=== PATIENT | male | born 1990 | race Caucasian/White ===

== ENCOUNTER 2016-08-27 03:20 | Emergency (ER) | payer OTHER ==
[2016-08-27 03:31] VITALS: BP 144/95
[2016-08-27] MEDS ORDERED: IBUPROFEN 400 MG TABLET PO ONE (03:54)
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
== END 2016-08-27 04:14 ==
LOC: ER 03:20
DX: S00.33XA Contusion of nose, initial encounter (principal); M13.812 Other specified arthritis, left shoulder; M13.811 Other specified arthritis, right shoulder; F17.210 Nicotine dependence, cigarettes, uncomplicated; Y09 Assault by unspecified means

== ENCOUNTER 2016-11-17 16:34 | Emergency (ER) | payer OTHER ==
[2016-11-17 17:02] VITALS: BP 125/89
--- NOTE | 2016-11-17 17:22 | ERNOTE ---
Dyspnea - Date Date of Service: 11/17/16 - General Presenting Symptoms: other - Sick Source: patient Exam Limitations: other - vague historian - Immun/Allergies/Home Medications Immunizations: IMMUNIZATION HX Immunizations Up to Date No History of Influenza Vaccine No Hx Pneumococcal Vaccination No Allergies/Adverse Reactions: Allergies cephalexin monohydrate [From Keflex] Allergy (Verified 11/17/16 17:02) Hives tramadol Allergy (Verified 11/17/16 17:02) fentanyl Adverse Reaction (Verified 11/17/16 17:02) Home Medications: HOME MEDICATIONS Acetaminophen [Tylenol] 1,000 mg PO PRN PRN 08/27/16 [Last Taken Unknown] Ibuprofen [Motrin] 800 mg PO TID PRN #30 tab 08/27/16 [Last Taken Unknown] Cefuroxime Axetil [Ceftin] 500 mg PO BID #20 tab 11/17/16 [Last Taken Unknown] - History of Present Illness Narrative: Became ill 2-3 days ago, isn't sure when. Lives with three other guys, none of whom have been ill. No thermometer, so doesn't know if he's had a fever. Cough productive of yellow phlegm, feels like his is drowning, sore throat, head ache, first day vomited because coughing so hard. Severity: moderate Treatment HEALTH PROFESSIONAL: other - tylenol Initiating event: Reports: unknown Frequency of episodes: Reports: no prior episodes Modifying Factors - (Improves): Reports: nothing Modifying Factors (Worsens): Reports: activity Associated Symptoms-Dyspnea: Reports: sweating, chest pain/discomfort, palpitations, cough, wheezing, dizziness, lightheadedness, weakness, loss of appetite Prior Treatment: Denies: recently seen, treated by physician, currently on antibiotics, previous episodes Review of Systems - Review of Systems Constitutional: Present: chills, diaphoresis, weakness, fatigue, malaise, decreased activity level EYE: Present: no symptoms reported ENT: Present: nose congestion, nasal drainage, sore throat Respiratory: Present: shortness of breath, cough Cardiology: Present: chest pain Gastrointestinal/Abdominal: Present: vomiting. Absent: diarrhea, eating less, drinking less Genitourinary: Present: no symptoms reported Musculoskeletal: Present: muscle pain, joint pain Skin: Present: no symptoms reported Neurological: Present: headache Endocrine: Present: no symptoms reported Hematologic/Lymphatic: Present: no symptoms reported Psych: Present: no symptoms reported All Other Systems: All systems neg except as marked - Patient's Past Medical History Patient History - Medical: No pertinent hx, Chronic Pain Patient History - Cardiac/Respiratory: No pertinent hx Patient History - Cancer: No Hx of Cancer Patient History - Surgical Procedures: No surgical history Patient History - Other: None - Social History Living Situations: other Abuse History: No History of abuse Psych History: No pertinent hx Smoking Status: Current every day smoker Alcohol Use: heavy Drug Use: none - Immunizations Immunizations Up to Date: No Hx Pneumococcal Vaccination: No History of Influenza Vaccine: No Physical Exam - Physical Exam General Appearance: Present: wd/wn, no apparent distress, lethargic, thin Eye Exam: Normal inspection: bilateral, PERRL: bilateral, EOMI: bilateral Ears, Nose, Throat: Present: normal ENT inspection, nasal congestion, pharyngeal erythema Neck: Present: normal inspection, nontender, supple. Absent: lymphadenopathy (R ), lymphadenopathy (L) Respiratory: Present: no respiratory distress, no accessory muscle use, lungs clear Cardiovascular/Chest: Present: regular rate, rhythm, no murmur Gastrointestinal/Abdominal: Present: normal bowel sounds, nondistended, soft, no organomegaly, tenderness - diffusely mildly tender Back Exam: Present: normal inspection Extremity Exam: Present: normal inspection, no edema Neurological Exam: Present: oriented Skin Exam: Present: normal color, warm/dry ED Progress - Results and Orders Patient's Lab Results:: I have reviewed the patient's lab results. - Vital Signs Patient's Vital Signs:: I have reviewed the patient's vital signs. Vital Signs: Vital Signs 11/17/16 16:54 Temperature 37.1 C Pulse Rate 96 Respiratory 18 Rate Blood Pressure 125/89 O2 Sat by Pulse 98 Oximetry - EKG EKG: NSR EKG read: Interp. by me - LAE, incomplete RBB, non specific ST elevation. - X-Ray X-Ray #1 X-Ray: chest Interpretation: Interp. by me - non acute - Progress/Reassessment Chief Complaint: Dyspnea Departure Clinical Impression: Bronchitis, Positive urine drug screen - Departure Disposition: Home self-care Condition: Fair Instructions: Acute Bronchitis, Stimulant Use Disorder-Amphetamines, Cannabis Use Disorder Additional Instructions: Follow up with health care provider of your choice this week. Prescriptions: Cefuroxime Axetil [Ceftin] 500 mg PO BID #20 tab
[2016-11-17 17:34] LABS: Hematocrit 46.4 % (42.0-52.0); Hemoglobin 15.8 gm/dL (13.5-18.0); Mean Cell Volume 91.3 fl (78-100); Mean Corpuscular Hemoglobin 31.1 pg (27-31); Mean Corpuscular Hgb Conc 34.1 g/dl (32-36); Mean Platelet Volume 9.3 fl (6.0-9.5); Neutrophil # 4.1 K/mm3 (1.3-6.0); Neutrophil % 65.7 % (42-75.0); Platelet Count 174 K/mm3 (150-450); Red Blood Count 5.08 M/mm3 (4.7-6.0); Red Cell Distribution Width 12.8 % (11.5-14.0); White Blood Count 6.2 K/mm3 (4.0-10.5)
[2016-11-17] MEDS ORDERED: ACETAMINOPHEN 500 MG TABLET PO ONE (17:46)
[2016-11-17] MEDS ORDERED: NORMAL SALINE 1,000 ML IV ONE (17:46)
[2016-11-17 17:55] LABS: ALT 23 U/L (19-67); AST 29 U/L (0-48); Albumin * 3.6 gm/dl (3.4-5.0); Alkaline Phosphatase * 55 U/L (50-170); Anion Gap 13.5 mmol/L (6.8-13.8); BUN/Creatinine Ratio 20.2 (9.0-21.6); Bilirubin, Total 0.4 mg/dL (0.0-1.1); Blood Urea Nitrogen 18 mg/dL (6-23); Ca. Corrected For Albumin 8.8 mg/dL (8.4-10.2); Calcium * 8.8 mg/dL (7.9-10.9); Carbon Dioxide 28.2 mmol/L (24-32.6); Chloride 102 mmol/L (97-106); Glucose * 114 mg/dL (70-110); Potassium 3.7 mmol/L (3.4-4.6); Sodium 140 mmol/L (132-142); T4 Free * 0.74 ng/dL (0.76-1.46); TSH * 0.438 uIU/mL (0.358-3.74); Total Protein 7.4 gm/dL (6.2-8.2)
[2016-11-17 17:57] LABS: Urine Appearance Clear; Urine Bilirubin Negative (NEGATIVE); Urine Blood Negative /ul (NEGATIVE); Urine Color Yellow; Urine Ketone Negative (NEGATIVE); Urine Nitrite Negative (NEGATIVE); Urine Protein Negative (NEGATIVE); Urine Urobilinogen Normal (NORMAL)
[2016-11-17 17:58] LABS: Urine Bacteria None Seen; Urine RBC None Seen /hpf (0-5); Urine WBC 0-5 /hpf (0-5)
[2016-11-17 18:01] LABS: Troponin I Less than 0.017 ng/ml (0.00-0.10)
[2016-11-17 18:03] LABS: Cocaine Ur Negative (NEGATIVE); Urine Barbiturate Negative (NEGATIVE); Urine Benzodiazepines Negative (NEGATIVE); Urine Opiates Negative (NEGATIVE); Urine PCP Negative (NEGATIVE); Urine THC Positive (NEGATIVE)
== END 2016-11-17 18:55 | disposition home or self-care (01) ==
LOC: ER 16:34
DX: J20.8 Acute bronchitis due to other specified organisms (principal); Z72.0 Tobacco use; F15.90 Other stimulant use, unspecified, uncomplicated; F12.90 Cannabis use, unspecified, uncomplicated
CPT/HCPCS: 36415; 71020; 80053; 80307; 81001; 83605; 84145; 84439; 84443; 84484; 85025; 85379; 87040; 87081; 87086; 87400; 87430; 93005; 96372; 99284; G0481

== ENCOUNTER 2016-12-31 01:25 | Emergency (ER) | payer OTHER ==
--- NOTE | 2016-12-31 02:10 | ERNOTE ---
Lower Extremity HPI - General Lower Extremities Pain: foot: right Time Seen by Provider: 12/31/16 01:54 Source: patient Exam Limitations: no limitations - Immun/Allergies/Home Medications Immunizations: IMMUNIZATION HX Immunizations Up to Date No History of Influenza Vaccine No Hx Pneumococcal Vaccination No Allergies/Adverse Reactions: Allergies Allergy/AdvReac Type Severity Reaction Status Date / Time cephalexin monohydrate Allergy Hives Verified 11/17/16 17:02 [From Keflex] tramadol Allergy Verified 11/17/16 17:02 fentanyl AdvReac Verified 11/17/16 17:02 Home Medications: HOME MEDICATIONS Naproxen [Naprosyn] 500 mg PO BID #10 tablet 12/31/16 [Last Taken Unknown] - History of Present Illness Narrative: Pt states he has had foot and ankle pain for some time, exacerbated by walking across town a couple of days ago Occurred: other Method of Injury: Reports: unknown Modifying Factors - (Worsens): Reports: movement - walking and running Other Injuries: Reports: none - Patient's Past Medical History Patient History - Medical: No pertinent hx, Chronic Pain Patient History - Cardiac/Respiratory: Asthma, Hypertension Patient History - Cancer: No Hx of Cancer Patient History - Surgical Procedures: No surgical history Patient History - Other: None - Social History Living Situations: parents Abuse History: No History of abuse Psych History: No pertinent hx Smoking Status: Current every day smoker Have you smoked in the past 12 months: Yes Alcohol Use: occasionally Drug Use: marijuana, meth - Immunizations Immunizations Up to Date: No Hx Pneumococcal Vaccination: No History of Influenza Vaccine: No Physical Exam - Physical Exam General Appearance: Present: wd/wn, alert, no apparent distress Neck: Present: normal inspection, nontender, supple Respiratory: Present: no respiratory distress Peripheral Pulses: N=norm/S=strong/W=weak/B=bound/A=absent: Dorsalis-pedis (R): Normal Extremity Exam: Present: other - right cloth finishing range back tender along 4&5 MT shaft Skin Exam: Present: other - mild ecchymosis along the inferior edge of the lateral right foot ED Progress - Vital Signs Vital Signs: Vital Signs 12/31/16 01:43 Temperature 37.0 C Pulse Rate 112 H Respiratory 16 Rate Blood Pressure 151/95 O2 Sat by Pulse 97 Oximetry - X-Ray X-Ray #1 X-Ray: foot Interpretation: Interp. by me X-ray Comments: nothing acute - Progress/Reassessment Chief Complaint: Lower Extremity Pain/ Injury Departure Clinical Impression: Peroneal tendonosis Qualifiers: Laterality: right Qualified Code(s): M76.71 - Peroneal tendinitis, right leg - Departure Disposition: Home self-care Condition: Good Instructions: Tendon Injury Additional Instructions: keep foot wrapped whenever possible for 1-2 weeks. try not to over use your ankle. Take medication as needed Prescriptions: Naproxen [Naprosyn] 500 mg PO BID #10 tablet
[2016-12-31] MEDS ORDERED: NAPROXEN SODIUM 550 MG TABLET PO ONE (02:25)
[2016-12-31] MEDS ORDERED: NAPROXEN SODIUM 550 MG TABLET ONE (02:26)
[2016-12-31 02:37] VITALS: BP 149/79
== END 2016-12-31 02:36 | disposition home or self-care (01) ==
LOC: ER 01:25
DX: M76.71 Peroneal tendinitis, right leg (principal); F17.210 Nicotine dependence, cigarettes, uncomplicated

== ENCOUNTER 2017-02-21 16:00 | Emergency (ER) | payer OTHER ==
[2017-02-21 16:12] VITALS: BP 145/91
[2017-02-21] MEDS ORDERED: IBUPROFEN 600 MG TABLET ONE (16:50)
--- NOTE | 2017-02-21 16:51 | ERNOTE ---
Lower Extremity HPI - Narrative Date of Service: 02/21/17 - General Lower Extremities Pain: knee: left Time Seen by Provider: 02/21/17 16:20 Source: patient, RN notes reviewed Exam Limitations: no limitations - Immun/Allergies/Home Medications Immunizations: IMMUNIZATION HX Immunizations Up to Date Yes History of Influenza Vaccine No Hx Pneumococcal Vaccination No Allergies/Adverse Reactions: Allergies Allergy/AdvReac Type Severity Reaction Status Date / Time cephalexin monohydrate Allergy Hives Verified 02/21/17 16:11 [From Keflex] tramadol Allergy Verified 02/21/17 16:11 fentanyl AdvReac Verified 02/21/17 16:11 Home Medications: HOME MEDICATIONS NK [No Home Medication] 02/21/17 [Last Taken Unknown] - History of Present Illness Narrative: 26 y/o male ambulatory to the ED for left knee pain that began about 3 weeks ago. He denies any specific injury, but reports that he has been walking more than normal. He has not been taking anything for pain. He denies having any problems with this knee in the past. Method of Injury: Reports: no apparent injury Associated Symptoms: Denies: unable to bear weight, snapping, popping sensation Subsequent Symptoms: Denies: sensory loss, numbness, motor loss Prior Treament: Denies: recently seen, similar symptoms before Review of Systems - Review of Systems Constitutional: Absent: recent illness, fever EYE: Present: no symptoms reported ENT: Present: no symptoms reported Respiratory: Present: no symptoms reported Cardiology: Present: no symptoms reported Gastrointestinal/Abdominal: Present: no symptoms reported Genitourinary: Present: no symptoms reported Musculoskeletal: Present: joint pain. Absent: back pain, muscle stiffness, joint swelling Skin: Absent: rash, lesions, lumps, change in color Neurological: Absent: weakness, numbness, tingling Endocrine: Present: no symptoms reported Hematologic/Lymphatic: Present: no symptoms reported Psych: Present: no symptoms reported - Patient's Past Medical History Patient History - Medical: Chronic Pain Patient History - Cardiac/Respiratory: Asthma, Hypertension Patient History - Cancer: No Hx of Cancer Patient History - Surgical Procedures: No surgical history Patient History - Other: None - Social History Living Situations: parents Abuse History: No History of abuse Psych History: Hx of Schizophrenia Smoking Status: Current every day smoker Alcohol Use: occasionally Drug Use: marijuana, meth - Immunizations Immunizations Up to Date: Yes Hx Pneumococcal Vaccination: No History of Influenza Vaccine: No Physical Exam - Physical Exam General Appearance: Present: alert, no apparent distress, thin, other - dirty appearance, appears to have walked here Respiratory: Present: no respiratory distress, no accessory muscle use Cardiovascular/Chest: Present: regular rate, rhythm, no murmur, normal peripheral pulses Extremity Exam: Present: normal except - - Diffuse tenderness with palpation of left knee, normal range of motion, no edema. Absent: joint redness, joint swelling Neurological Exam: Present: alert, oriented, no motor/sensory deficits, other - depressed appearing, flat affect. Absent: normal mood/affect Skin Exam: Present: normal color, warm/dry ED Progress - Vital Signs Patient's Vital Signs:: I have reviewed the patient's vital signs. Vital Signs: Vital Signs 02/21/17 16:08 Temperature 36.4 C L Pulse Rate 106 H Respiratory 16 Rate Blood Pressure 145/91 O2 Sat by Pulse 99 Oximetry - X-Ray X-Ray #1 X-Ray: knee Interpretation: Reviewed by me X-ray Comments: Left knee - no acute osseous abnormalities - Progress/Reassessment Chief Complaint: Lower Extremity Pain/ Injury Progress:: Unchanged Departure Clinical Impression: Knee pain, left Qualifiers: Chronicity: acute Qualified Code(s): M25.562 - Pain in left knee - Departure Disposition: Home Follow Up Needed Condition: Stable Instructions: Knee Pain, [id number] Additional Instructions: Contact orthopedics for follow-up Ibuprofen for pain 600 mg ( 3 tablets ) every 6 hours as needed - take with food Ice and elevate Wear LARA wrap as needed for support Referrals: Senthil Stanford MD [Staff Physician] -
[2017-02-21] MEDS ORDERED: IBUPROFEN 600 MG TABLET PO ONE (16:55)
== END 2017-02-21 16:50 | disposition home or self-care (01) ==
LOC: ER 16:00
DX: M25.562 Pain in left knee (principal); F17.200 Nicotine dependence, unspecified, uncomplicated

== ENCOUNTER 2017-03-17 08:18 | Emergency (ER) | payer OTHER ==
[2017-03-17] MEDS ORDERED: LIDOCAINE HCL 20 ML VIAL ONE (10:10)
[2017-03-17] MEDS ORDERED: IBUPROFEN 600 MG TABLET PO ONE (10:27)
[2017-03-17] MEDS ORDERED: IBUPROFEN 600 MG TABLET ONE (10:34)
--- NOTE | 2017-03-17 10:39 | ERNOTE ---
Upper Extremity HPI - General Extremities Pain Location: hand: left Time Seen by Provider: 03/17/17 10:02 Source: patient Exam Limitations: no limitations - Immun/Allergies/Home Medications Immunizations: IMMUNIZATION HX Immunizations Up to Date Yes History of Influenza Vaccine Yes Hx Pneumococcal Vaccination No Allergies/Adverse Reactions: Allergies Allergy/AdvReac Type Severity Reaction Status Date / Time cephalexin monohydrate Allergy Hives Verified 02/21/17 16:11 [From Keflex] fentanyl AdvReac Verified 02/21/17 16:11 Home Medications: HOME MEDICATIONS Ibuprofen [Motrin] 600 mg PO Q6H PRN #40 tab 03/17/17 [Last Taken Unknown] Sulfamethoxazole/Trimethoprim [Bactrim Ds] 1 tab PO BID #20 tab 03/17/17 [Last Taken Unknown] - History of Present Illness Narrative: Patient cut his left hand with a knife while dry walling about a week ago. Over the last few days the area has been getting red and swollen. Yesterday he was able to squeeze some yellow material out today he noticed a red streak up his arm. He denies any other symptoms, no fever Review of Systems - Review of Systems Constitutional: Absent: recent illness, fever ENT: Absent: nose congestion, sore throat Respiratory: Absent: shortness of breath Cardiology: Absent: chest pain, palpitations Gastrointestinal/Abdominal: Absent: nausea, vomiting, diarrhea, abdominal pain Genitourinary: Present: no symptoms reported Musculoskeletal: Present: See HPI Skin: Present: See HPI Neurological: Absent: weakness, numbness - Patient's Past Medical History Patient History - Medical: Chronic Pain Patient History - Cardiac/Respiratory: Asthma, Hypertension Patient History - Cancer: No Hx of Cancer Patient History - Surgical Procedures: No surgical history Patient History - Other: None - Social History Living Situations: parents Abuse History: No History of abuse Psych History: Hx of Schizophrenia Smoking Status: Current every day smoker Have you smoked in the past 12 months: Yes Do you dip or chew tobacco: No Alcohol Use: occasionally Drug Use: marijuana, meth - Immunizations Immunizations Up to Date: Yes Hx Pneumococcal Vaccination: No History of Influenza Vaccine: Yes Physical Exam - Physical Exam General Appearance: Present: wd/wn, alert, no apparent distress Respiratory: Present: no respiratory distress Extremity Exam: Present: normal except - - left hand: swelling and redness over thenar about 6cm in diameter, central scab, faint lymphangitis up to mid forearm Neurological Exam: Present: alert, oriented, normal mood/affect, no motor/ sensory deficits Skin Exam: Present: normal color, warm/dry ED Progress - Vital Signs Patient's Vital Signs:: I have reviewed the patient's vital signs. Vital Signs: Vital Signs 03/17/17 08:23 Temperature 37.0 C Pulse Rate 80 Respiratory 12 Rate Blood Pressure 125/87 O2 Sat by Pulse 98 Oximetry - Progress/Reassessment Chief Complaint: Hand Injury/Pain Procedures Left Hand Anesthesia: 1% Lidocaine, Local I & D Prep: betadine prep Blade Size: 11 Findings and Actions: purulent drainage small, cultures obtained Estimated blood loss (ml): 2 Complications: Pt jonathan procedure well Departure Clinical Impression: Cellulitis and abscess of hand - Departure Disposition: Home self-care Condition: Good Instructions: Cellulitis, Adult, [id number] Additional Instructions: if the redness and swelling gets worse return to the ER Referrals: Vinicius Bliss MD [Staff Physician] - Prescriptions: Ibuprofen [Motrin] 600 mg PO Q6H PRN #40 tab PRN Reason: Pain Sulfamethoxazole/Trimethoprim [Bactrim Ds] 1 tab PO BID #20 tab
[2017-03-17 10:55] VITALS: BP 114/71
== END 2017-03-17 10:52 | disposition home or self-care (01) ==
LOC: ER 08:18
DX: L03.114 Cellulitis of left upper limb (principal); W26.0XXA Contact with knife, initial encounter; F17.210 Nicotine dependence, cigarettes, uncomplicated